=== PATIENT | male | born 1955 | race African-American/Black ===

== ENCOUNTER 2016-11-07 15:17 | Emergency (ER) | payer BC ==
[2016-11-07 15:36] VITALS: BMI 22.9
[2016-11-07 16:30] LABS: BASOPHIL 0.5 % (0-2.0); EOSINOPHIL 0.4 % (0-4.5); MCHC 32.7 g/dl (32.0-35.9); MEAN CELL VOLUME 79.5 fl (80-96); MEAN PLT VOLUME 8.2 fl (7.5-11.1); PLATELET COUNT 233 K/MM3 (134-434); RDW 13.7 % (11.9-15.9); URINE APPEARANCE CLEAR; URINE BILIRUBIN NEGATIVE (NEGATIVE); URINE COLOR LTYELLOW; URINE GLUCOSE (UA) NEGATIVE (NEGATIVE); URINE KETONE TRACE (NEGATIVE); URINE LEUK ESTERASE NEGATIVE (NEGATIVE); URINE NITRITE NEGATIVE (NEGATIVE); URINE PROTEIN NEGATIVE (NEGATIVE); URINE UROBILINOGEN NEGATIVE E.U./dl (0.2-1.0); WHITE BLOOD COUNT 3.8 K/mm3 (4.0-10.0)
[2016-11-07 16:32] LABS: URINE BLOOD 1+ (NEGATIVE)
[2016-11-07 16:34] LABS: URINE BACTERIA RARE /hpf (NONE SEEN); URINE HYALINE CAST 2 /lpf; URINE MUCUS RARE; URINE RBC 5 /hpf (0-3); URINE WBC 1 /hpf (3-5)
[2016-11-07 16:54] LABS: ALBUMIN 4.3 g/dl (3.4-5.0); ANION GAP 7 (8-16); CALCIUM 9.8 mg/dL (8.5-10.1); CO2 31 mmol/L (21-32); CREATININE 0.9 mg/dL (0.7-1.3); GLUCOSE,RANDOM 117 mg/dL (74-106); SGOT/AST 17 U/L (15-37); SGPT/ALT 23 U/L (12-78)
[2016-11-07 16:56] LABS: ALK PHOS 61 U/L (45-117); BILIRUBIN,TOTAL 0.7 mg/dL (0.2-1.0); TOT PROT 7.8 g/dl (6.4-8.2)
--- NOTE | 2016-11-07 16:56 | PDOC ---
History of Present Illness - General Chief Complaint: Urinary Problem Stated Complaint: UNABLE TO URINATE Time Seen by Provider: 11/07/16 15:40 History Source: Patient Exam Limitations: No Limitations - History of Present Illness Travel History: No Initial Comments: 11/07/16 16:56 61-year-old male with history of BPH and urinary retention presents to the ED with complaints of urinary retention for the past 5 hours since he was unable to void at a . Patient aggravated suprapubic pain without nausea, fever, chills, back pain, or abdominal distention. Timing/Duration: reports: constant, getting worse Quality: reports: moderate, fullness Abdominal Pain Onset Location: reports: suprapubic (mid) Pain Radiation: reports: no radiation Activities at Onset: reports: none Aggravating Factors: improves with: None Alleviating Factors: improves with: None Past History - Past Medical History Allergies/Adverse Reactions: Allergies Allergy/AdvReac Type Severity Reaction Status Date / Time No Known Allergies Allergy Verified 11/07/16 15:36 Home Medications: Ambulatory Orders Loratadine [Claritin -] 10 mg PO PRN 01/05/13 Montelukast Na [Singulair -] 1 tab PO PRN PRN 01/05/13 Tamsulosin HCl [Flomax] 0.4 mg PO DAILY #15 capsule 06/22/15 Anemia: No Asthma: No Cancer: No Cardiac Disorders: No CVA: No COPD: No CHF: No Dementia: No Diabetes: No GI Disorders: No Disorders: No HTN: (BORDERLINE HTN) Hypercholesterolemia: No Liver Disease: No Seizures: No Thyroid Disease: No - Psycho/Social/Smoking Cessation Hx Anxiety: No Suicidal Ideation: No Smoking History: Never smoked Have you smoked in the past 12 months: No Information on smoking cessation initiated: No Hx Alcohol Use: No Drug/Substance Use Hx: No Substance Use Type: None Hx Substance Use Treatment: No Patient Lives Alone: No Lives with/in: spouse/SO Review of Systems - Review of Systems Able to Perform ROS?: Yes Constitutional: No: Symptoms Reported Cardiac (ROS): No: Symptoms Reported ABD/GI: Yes: Abdominal cramping : Yes: Other Integumentary: No: Symptoms Reported Neurological: No: Symptoms reported *Physical Exam - Vital Signs Last Vital Signs Temp Pulse Resp BP Pulse Ox 98.2 F 122 H 20 121/83 100 11/07/16 15:33 11/07/16 15:33 11/07/16 15:33 11/07/16 15:33 11/07/16 15:33 - Physical Exam General Appearance: Yes: Nourished, Appropriately Dressed. No: Apparent Distress Gastrointestinal/Abdominal: positive: Normal Bowel Sounds, Soft, Tenderness ( midsuprapubic) Musculoskeletal: negative: CVA Tenderness Extremity: positive: Normal Capillary Refill. negative: Pedal Edema Integumentary: positive: Normal Color, Warm, Moist Neurologic: positive: Motor Strength 01/01 ED Treatment Course - LABORATORY CBC & Chemistry Diagram: 11/07/16 16:15 11/07/16 16:15 - ADDITIONAL ORDERS Additional order review: Laboratory Results 11/07/16 16:15 Urine Color Ltyellow Urine Appearance Clear Urine pH 5.0 Ur Specific [place] 1.011 Urine Protein Negative Urine Glucose (UA) Negative Urine Ketones Trace H Urine Blood 1+ H Urine Nitrite Negative Urine Bilirubin Negative Urine Urobilinogen Negative Ur Leukocyte Esterase Negative Urine RBC 5 Urine WBC 1 Urine Bacteria Rare Hyaline Casts 2 Urine Mucus Rare 11/07/16 16:15 RBC 5.33 MCV 79.5 L MCHC 32.7 RDW 13.7 MPV 8.2 Neutrophils % 69.0 Lymphocytes % 22.2 D Monocytes % 7.9 D Eosinophils % 0.4 D Basophils % 0.5 Medical Decision Making - Medical Decision Making 11/07/16 16:51 Pt with c/o urinary retention x 5 hours. Patient states history of urinary retention secondary to BPH and is followed by Dr. rowley and was told never told this year but patient states was at a few and all was unable to use the bathroom so when he did try to void after the he couldn't and so decided come to the ER when the suprapubic pain increased. patient ordered for UA, urine culture, CBC, and comp. 11/07/16 17:05 Laboratory Tests 11/07/16 11/07/16 11/07/16 16:15 16:15 16:15 WBC 3.8 L Hgb 13.9 Hct 42.4 Neutrophils % 69.0 Sodium 143 Potassium 4.0 Chloride 105 Carbon Dioxide 31 Anion Gap 7 L BUN 15 Creatinine 0.9 Creat Clearance w eGFR > 60 Random Glucose 117 H Calcium 9.8 Total Bilirubin 0.7 AST 17 ALT 23 Alkaline Phosphatase 61 Total Protein 7.8 Albumin 4.3 Urine Ketones Trace H Urine Blood 1+ H Urine Nitrite Negative Ur Leukocyte Esterase Negative Urine RBC 5 Urine WBC 1 Patient drained 400 mL of clear yellow urine. Patient be placed in a leg bag and told to follow-up with Dr. Hall on Wednesday *DC/Admit/Observation/Transfer Diagnosis at time of Disposition: Urinary retention due to benign prostatic hyperplasia - Discharge Dispostion Disposition: HOME Condition at time of disposition: Improved - Patient Instructions Printed Discharge Instructions: DI for Benign Prostatic Hyperplasia, DI for Urinary Retention in Men Additional Instructions: Please keep bag attached to a leg an empty as needed. Please follow-up with your urologist on Wednesday and return to ED if symptoms worsen
[2016-11-07 17:38] VITALS: BP 116/79; PULSE 89; TEMP 98.6
== END 2016-11-07 17:38 | disposition home or self-care (01) ==
LOC: JER 15:17
PROC: 0T9B70Z Drainage of Bladder with Drainage Device, Via Natural or Artificial Opening (ICD-10-PCS; principal; 2016-11-07)
DX: N40.1 Benign prostatic hyperplasia with lower urinary tract symptoms (principal); R33.8 Other retention of urine
CPT/HCPCS: 36415; 80053; 81003; 81015; 85025; 87086; 99282-25

== ENCOUNTER 2018-03-13 01:20 | Emergency (ER) | payer BC ==
[2018-03-13 01:49] VITALS: PULSE 91; TEMP 98.6; BMI 27.4
[2018-03-13 02:03] LABS: URINE APPEARANCE CLEAR; URINE BILIRUBIN NEGATIVE (<2.0 mg/dL); URINE COLOR STRAW; URINE GLUCOSE (UA) NEGATIVE (NEGATIVE); URINE KETONE NEGATIVE (NEGATIVE); URINE LEUK ESTERASE NEGATIVE (NEGATIVE); URINE NITRITE NEGATIVE (NEGATIVE); URINE PROTEIN NEGATIVE (NEGATIVE); URINE UROBILINOGEN NEGATIVE mg/dL (0.2-1.0)
[2018-03-13 02:06] LABS: URINE MUCUS RARE
[2018-03-13 02:11] VITALS: BP 130/81
--- NOTE | 2018-03-13 02:33 | PDOC ---
History of Present Illness - General Chief Complaint: Urinary Problem Stated Complaint: URINARY PROBLEM Time Seen by Provider: 03/13/18 02:15 History Source: Patient Exam Limitations: No Limitations - History of Present Illness Travel History: No Initial Comments: 03/13/18 02:26 This 63-year-old male with past medical history of BPH presents emergency Department with urinary retention for 6 hours. Patient states his last void was at 8:00 this evening prior to going to a libertarian. Of the libertarian had 2 drinks and felt the urge to void. He went to the bathroom and was only able to initiate a weak stream of urine which stopped after the first couple of drops. Patient began to experience suprapubic pain and distention. Patient left the libertarian and came to the emergency department for urgent evaluation and fully catheter placement. Patient denies any fevers, chills, flank pain. Past History - Past Medical History Allergies/Adverse Reactions: Allergies Allergy/AdvReac Type Severity Reaction Status Date / Time No Known Allergies Allergy Verified 03/13/18 01:48 Home Medications: Ambulatory Orders Loratadine [Claritin -] 10 mg PO PRN 01/05/13 Montelukast Na [Singulair -] 1 tab PO PRN PRN 01/05/13 Tamsulosin HCl [Flomax] 0.4 mg PO DAILY #15 capsule 06/22/15 Anemia: No Asthma: No Cancer: No Cardiac Disorders: No CVA: No COPD: No CHF: No Dementia: No Diabetes: No GI Disorders: No Disorders: No HTN: (BORDERLINE HTN) Hypercholesterolemia: No Liver Disease: No Seizures: No Thyroid Disease: No - Immunization History Immunization Up to Date: Yes - Suicide/Smoking/Psychosocial Hx Smoking History: Never smoked Have you smoked in the past 12 months: No Information on smoking cessation initiated: No Hx Alcohol Use: No Drug/Substance Use Hx: No Substance Use Type: None Hx Substance Use Treatment: No Review of Systems - Review of Systems Able to Perform ROS?: Yes Is the patient limited Croatian proficient: No Constitutional: No: Symptoms Reported HEENTM: No: Symptoms Reported Respiratory: No: Symptoms reported Cardiac (ROS): No: Symptoms Reported ABD/GI: No: Symptoms Reported : Yes: See HPI Musculoskeletal: No: Symptoms Reported Integumentary: No: Symptoms Reported Neurological: No: Symptoms reported Endocrine: No: Symptoms Reported Hematologic/Lymphatic: No: Symptoms Reported *Physical Exam - Vital Signs Last Vital Signs Temp Pulse Resp BP Pulse Ox 98.6 F 91 H 20 130/81 99 03/13/18 01:48 03/13/18 01:48 03/13/18 01:48 03/13/18 02:10 03/13/18 01:48 - Physical Exam General Appearance: Yes: Appropriately Dressed. No: Apparent Distress Gastrointestinal/Abdominal: positive: Normal Bowel Sounds, Tender (suprapubic) Musculoskeletal: positive: Normal Inspection. negative: CVA Tenderness Extremity: positive: Normal Inspection Integumentary: positive: Normal Color, Dry, Warm ED Treatment Course - ADDITIONAL ORDERS Additional order review: Laboratory Results 03/13/18 01:52 Urine Color Straw Urine Appearance Clear Urine pH 5.0 Ur Specific [place] 1.010 Urine Protein Negative Urine Glucose (UA) Negative Urine Ketones Negative Urine Blood 3+ H Urine Nitrite Negative Urine Bilirubin Negative Urine Urobilinogen Negative Ur Leukocyte Esterase Negative Urine WBC (Auto) 16 Urine RBC (Auto) 89 Urine Mucus Rare Medical Decision Making - Medical Decision Making 03/13/18 02:34 A/P: 63-year-old male with acute urinary retention Suprapubic distention Unable to successfully pass traditional Thayer catheter Coude catheter placed with 800 mL of clear yellow urine drained from fully. Acute urinary retention most likely from BPH but will send urine for infectious etiology UA with 3+ blood and negative leuk esterase. Given these findings is most likely BPH with atraumatic catheter placement. I will discharge patient home to follow-up with his primary urologist Dr. Sanchez. Patient patient previously prescribed Flomax. He just filled this prescription and does not need any refills. *DC/Admit/Observation/Transfer Diagnosis at time of Disposition: Urinary retention due to benign prostatic hyperplasia - Discharge Dispostion Disposition: HOME Condition at time of disposition: Stable Decision to Admit order: No - Referrals Referrals: Narayan Sanchez MD [Staff Physician] - Daniel Perales MD [Primary Care Provider] - - Patient Instructions Additional Instructions: Keep Thayer catheter in place until he follow-up with your urologist. Return to emergency department for any concerns. Thank you very much for choosing us to provide your emergent health care needs. - Post Discharge Activity
== END 2018-03-13 02:45 | disposition home or self-care (01) ==
LOC: JER 01:20
PROC: 0T9B70Z Drainage of Bladder with Drainage Device, Via Natural or Artificial Opening (ICD-10-PCS; principal; 2018-03-13)
DX: N40.1 Benign prostatic hyperplasia with lower urinary tract symptoms (principal); R33.8 Other retention of urine; I10 Essential (primary) hypertension
CPT/HCPCS: 81003; 81015; 87086; 99283-25

== ENCOUNTER 2019-03-15 09:36 | Emergency (ER) | payer BC, OTHER ==
[2019-03-15 09:45] VITALS: BP 156/107; PULSE 64; TEMP 98.9; BMI 22.8
[2019-03-15] MEDS ORDERED: DIPHTH,PERTUSS(ACELL),TET 0.5 ML DISP.SYRIN IM ONE ×2 (10:02→10:38)
[2019-03-15] MEDS ORDERED: IBUPROFEN 400 MG TABLET (FP) PO ONE ×2 (10:02→10:38)
--- NOTE | 2019-03-15 10:05 | PDOC ---
History of Present Illness - General Chief Complaint: Injury Stated Complaint: LEFT 3 AND 4TH FINGER CRUSH Time Seen by Provider: 03/15/19 09:44 History Source: Patient (Patient walked in complaining of accidental injury to left hand when a metal door was slamed on his hand) - History of Present Illness Timing/Duration: 1/2 hour Severity: mild, moderate Associated Symptoms: reports: denies symptoms Past History - Travel Traveled outside of the country in the last 30 days: No Close contact w/someone who was outside of country & ill: No - Past Medical History Allergies/Adverse Reactions: Allergies Allergy/AdvReac Type Severity Reaction Status Date / Time No Known Allergies Allergy Verified 03/15/19 09:38 Home Medications: Ambulatory Orders Sulfamethoxazole/Trimethoprim [Bactrim Ds Tablet] 1 each PO BID #14 tablet 03/15 Anemia: No Asthma: No Cancer: No Cardiac Disorders: No CVA: No COPD: No CHF: No Dementia: No Diabetes: No GI Disorders: No Disorders: No HTN: (BORDERLINE HTN) Hypercholesterolemia: No Liver Disease: No Seizures: No Thyroid Disease: No - Immunization History Td Vaccination: No Immunization Up to Date: No - Suicide/Smoking/Psychosocial Hx Smoking History: Never smoked Have you smoked in the past 12 months: No Information on smoking cessation initiated: No Hx Alcohol Use: No Drug/Substance Use Hx: No Substance Use Type: None Hx Substance Use Treatment: No Review of Systems - Review of Systems Able to Perform ROS?: Yes Is the patient limited Kyrgyz proficient: Yes Constitutional: No: Symptoms Reported, See HPI, Chills, Diaphoresis, Fever, Loss of Appetite, Malaise, Night Sweats, Weakness, Weight Stable, Unintentional Wgt. Loss, Unexplained wgt Loss, Other HEENTM: No: Symptoms Reported, See HPI, Eye Pain, Blurred Vision, Tearing, Recent change in vision, Double Vision, Cataracts, Ear Pain, Ocular Prothesis, Ear Discharge, Nose Pain, Nose Congestion, Tinnitus, Nose Bleeding, Hearing Loss , Throat Pain, Throat Swelling, Mouth Pain, Dental Problems, Difficulty Swallowing, Mouth Swelling, Other Respiratory: No: Symptoms reported, See HPI, Cough, Orthopnea, Shortness of Breath, SOB with Exertion, SOB at Rest, Stridor, Wheezing, Productive cough, Hemoptysis, Other Musculoskeletal: Yes: Symptoms Reported, See HPI, Other (injury to left hand by crushing by a metal door) Integumentary: Yes: Symptoms Reported, Other (cuts on [id number] & 4th fingers) All Other Systems: Reviewed and Negative *Physical Exam - Vital Signs Last Vital Signs Temp Pulse Resp BP Pulse Ox 98.9 F 64 20 156/107 H 99 03/15/19 09:38 03/15/19 09:38 03/15/19 09:38 03/15/19 09:38 03/15/19 09:38 - Physical Exam General Appearance: Yes: Nourished, Appropriately Dressed, Moderate Distress HEENT: positive: ROBERTO CARLOS Neck: positive: Supple Extremity: positive: Normal Capillary Refill Integumentary: positive: Other (lacerations on the palmar aspect of 3rd &4 digits, full range of motion, good strength) Neurologic: positive: water use inspector II-XII NML intact, Fully Oriented, Alert, Normal Mood/ Affect, Other (Normal neuro vascular of the affected extremity) Procedures - Laceration/Wound Repair Left Volar Finger 3rd digit Wound Length: 2.6 to 5.0 cm Wound Explored: no foreign body present Wound's Depth, Shape: superficial, irregular Irrigated w/ Saline: Yes Betadine Prep: Yes Anesthesia: 2% Lidocaine Amount of Anesthetic (ccs): 10 (digital blocks 3 & 4 fingers) Wound Debrided: minimal Wound Repaired With: Sutures Suture Size/Type: 5:0 Number of Sutures: 8 (5 + 3 sutures) Deep Layer Suture Size/Type: 5:0 Sterile Dressing Applied: Yes Splint Applied: Yes *DC/Admit/Observation/Transfer Diagnosis at time of Disposition: Laceration of multiple sites of hand and fingers Qualifiers: Encounter type: initial encounter Laterality: right Qualified Code(s): S61.411A - Laceration without foreign body of right hand, initial encounter - Discharge Dispostion Disposition: HOME Condition at time of disposition: Improved Decision to Admit order: No - Prescriptions Prescriptions: Sulfamethoxazole/Trimethoprim [Bactrim Ds Tablet] 1 each PO BID #14 tablet - Referrals Referrals: Waldemar Yee MD [Staff Physician] - - Patient Instructions Printed Discharge Instructions: DI for Laceration Repair Additional Instructions: clean and dry, if getting dirty or wet change dressing Follow up with hand / plastic specialist in 3-5 days Sutures out in 12-14 days - Post Discharge Activity Forms/Work/School Notes: Back to Work
[2019-03-15] MEDS ORDERED: LIDOCAINE HCL 2% (20ML MULTI-DOSE VIAL) NR ONE (10:53)
[2019-03-15] MEDS ORDERED: SULFAMETHOXAZOLE/TRIMETHOPRIM 800MG/160MG D.S. TABLET PO ONE (12:16)
[2019-03-15] MEDS ORDERED: SULFAMETHOXAZOLE/TRIMETHOPRIM 800MG/160MG D.S. TABLET ONE (12:18)
== END 2019-03-15 12:44 | disposition home or self-care (01) ==
LOC: FER 09:36
PROC: 0HQGXZZ Repair Left Hand Skin, External Approach (ICD-10-PCS; principal; 2019-03-15)
PROC: 3E0234Z Introduction of Serum, Toxoid and Vaccine into Muscle, Percutaneous Approach (ICD-10-PCS; 2019-03-15)
DX: S61.213A Laceration without foreign body of left middle finger without damage to nail, initial encounter (principal); W23.0XXA Caught, crushed, jammed, or pinched between moving objects, initial encounter; Y93.9 Activity, unspecified; Y92.9 Unspecified place or not applicable
CPT/HCPCS: 73140-TC-LT-FY; 90715; 99282-25

== ENCOUNTER 2019-07-19 21:22 | Emergency (ER) | payer BC, OTHER ==
[2019-07-19 21:25] VITALS: BP 144/97; PULSE 102; TEMP 98.7; BMI 22.8
[2019-07-19 21:52] LABS: EPI CELLS 1.5 /HPF (0-5/HPF); HYALINE CASTS 5 /lpf (0-8); URINE APPEARANCE CLOUDY; URINE BACTERIA 0.2 /hpf (NEGATIVE); URINE BILIRUBIN NEGATIVE (NEGATIVE); URINE COLOR RED; URINE GLUCOSE (UA) NEGATIVE (NEGATIVE); URINE KETONE NEGATIVE (NEGATIVE); URINE LEUK ESTERASE 1+ (NEGATIVE); URINE NITRITE NEGATIVE (NEGATIVE); URINE PROTEIN 2+ (NEGATIVE); URINE RBC 237 /hpf (0-4); URINE UROBILINOGEN 0.2 mg/dL (0.2-1.0); URINE WBC 7 /hpf (0-5)
[2019-07-19 22:01] LABS: BASO % 0.7 % (0-2.0); EOS % 0.9 % (0-4.5); HEMOGLOBIN 12.5 GM/dL (11.7-16.9); LYMPH % 24.5 % (8-40); MCH 26.3 pg (25.7-33.7); MEAN CELL VOLUME 79.7 fl (80-96); MEAN PLT VOLUME 8.2 fl (7.5-11.1); MONO % 10.4 % (3.8-10.2); NEUT % 63.5 % (42.8-82.8); PLATELET COUNT 195 K/MM3 (134-434); RBC 4.77 M/mm3 (4.00-5.60); RDW 13.2 % (11.9-15.9); WHITE BLOOD COUNT 5.6 K/mm3 (4.0-10.0)
--- NOTE | 2019-07-19 22:23 | PDOC ---
Documentation entered by Leah Lam SCRIBE, acting as scribe for Caitie Raines DO. Caitie Raines DO: This documentation has been prepared by the Carole anderson Xhesika, SCRIBE, under my direction and personally reviewed by me in its entirety. I confirm that the documentation accurately reflects all work, treatment, procedures, and medical decision making performed by me. History of Present Illness - General Chief Complaint: Urinary Problem Stated Complaint: UTI Time Seen by Provider: 07/19/19 21:38 History Source: Patient Exam Limitations: No Limitations - History of Present Illness Initial Comments: 07/19/19 22:13 The patient is a 64 year old male with a significant PMH of green light procedure done (07/17/19) who presents to the emergency department for urinary retention x 6hrs. Patient notes he had a green light procedure done 07/17/[address] Sanchez and had his cath removed today at 11am. Patient notes he has been able to void once or twice between 11am-4pm, however, has not been able to void after 4pm. Pt notes he has been drinking liquids. The patient denies chest pain, shortness of breath, headache. Denies fever, chills, cough, nausea, vomiting, diarrhea and constipation. Denies dysuria, frequency, urgency. Allergies: STEPHANYDA Urologist: Dr. Sanchez Past History - Past Medical History Allergies/Adverse Reactions: Allergies Allergy/AdvReac Type Severity Reaction Status Date / Time No Known Allergies Allergy Verified 07/19/19 21:25 Home Medications: Ambulatory Orders Amlodipine Besylate 5 mg PO DAILY 07/19/19 Anemia: No Asthma: No Cancer: No Cardiac Disorders: No CVA: No COPD: No CHF: No Dementia: No Diabetes: No GI Disorders: No Disorders: No HTN: (BORDERLINE HTN) Hypercholesterolemia: No Liver Disease: No Seizures: No Thyroid Disease: No - Immunization History Td Vaccination: No Immunization Up to Date: No - Psycho Social/Smoking Cessation Hx Smoking History: Never smoked Have you smoked in the past 12 months: No Hx Alcohol Use: No Drug/Substance Use Hx: No Substance Use Type: None Hx Substance Use Treatment: No Review of Systems - Review of Systems Able to Perform ROS?: Yes Comments:: 07/19/19 22:14 GENERAL/CONSTITUTIONAL: No fever or chills. No weakness. HEAD, EYES, EARS, NOSE AND THROAT: No change in vision. No ear pain or discharge. No sore throat. CARDIOVASCULAR: No chest pain or shortness of breath. RESPIRATORY: No cough, wheezing, or hemoptysis. GASTROINTESTINAL: No nausea, vomiting, diarrhea or constipation. GENITOURINARY: No dysuria, frequency.+urinary retention. MUSCULOSKELETAL: No joint or muscle swelling or pain. No neck or back pain. SKIN: No rash NEUROLOGIC: No headache, vertigo, loss of consciousness, or change in strength/ sensation. ENDOCRINE: No increased thirst. No abnormal weight change. HEMATOLOGIC/LYMPHATIC: No anemia, easy bleeding, or history of blood clots. ALLERGIC/IMMUNOLOGIC: No hives or skin allergy. *Physical Exam - Vital Signs Last Vital Signs Temp Pulse Resp BP Pulse Ox 98.7 F 102 H 18 144/97 99 07/19/19 21:23 07/19/19 21:23 07/19/19 21:23 07/19/19 21:23 07/19/19 21:23 - Physical Exam Comments: 07/19/19 23:00 GENERAL: Awake, alert, and fully oriented, in no acute distress HEAD: No signs of trauma EYES: PERRLA, EOMI, sclera anicteric, conjunctiva clear LUNGS: Breath sounds equal, clear to auscultation bilaterally. No wheezes, and no crackles HEART: Regular rate and rhythm, normal S1 and S2, no murmurs, rubs or gallops ABDOMEN: Soft, nontender, normoactive bowel sounds. No guarding, no rebound. No masses GI/: + catheter in place. + no bleeding at the meatus. +pink tinted urine coming out. Uncircumcised. EXTREMITIES: Normal range of motion, no edema. No clubbing or cyanosis. No cords, erythema, or tenderness NEUROLOGICAL: Cranial nerves II through XII grossly intact. Normal speech, normal gait SKIN: Warm, Dry, normal turgor, no rashes or lesions noted. ED Treatment Course - LABORATORY CBC & Chemistry Diagram: 07/19/19 21:50 07/19/19 21:50 - ADDITIONAL ORDERS Additional order review: Laboratory Results 07/19/19 21:40 Urine Color Red Urine Appearance Cloudy Urine pH 6.0 Ur Specific [place] 1.009 L Urine Protein 2+ H Urine Glucose (UA) Negative Urine Ketones Negative Urine Blood 3+ H Urine Nitrite Negative Urine Bilirubin Negative Urine Urobilinogen 0.2 Ur Leukocyte Esterase 1+ H Urine WBC (Auto) 7 Urine RBC (Auto) 237 Urine Casts (Auto) 5 U Epithel Cells (Auto) 1.5 Urine Bacteria (Auto) 0.2 Medical Decision Making - Medical Decision Making 07/19/19 22:20 a/p: 64yo male with recent prostate sx with dr. De Los Santos presents for eval of urinary retention -last time he was able to pass urine was 4p -states his post op catheter was removed by the urologist at 11am - he was able to urinate twice prior to going into retention -catheter placed by the nurse upon arrival shows 650cc of blood tinged urine - had hematuria yesterday - no clots -no pain after placement of the catheter -will send cbc, chem, ua, ucx -will need a leg bag to go home with -will discuss with Dr. De Los Santos 07/19/19 22:47 labs reviewed no elevated wbc or cr 07/19/19 23:26 pt ambulatory in the ER with a steady gait pending call back from Dr. Sanchez stable for dc to home 07/19/19 23:28 discussed labs with the patient states he will call Dr. aSnchez in the AM pt requesting to go home Discharge - Discharge Information Problems reviewed: Yes Clinical Impression/Diagnosis: Postoperative urinary retention Condition: Stable Disposition: HOME - Admission No - Follow up/Referral Referrals: Narayan Sanchez MD [Staff Physician] - - Patient Discharge Instructions Patient Printed Discharge Instructions: How to Care for Your Qureshi Catheter -- Male, DI for Urinary Retention in Men Additional Instructions: Please follow up with Dr. Sanchez. Please keep the qureshi catheter in until seen by your urologist. - Post Discharge Activity
[2019-07-19 22:29] LABS: ALBUMIN 3.7 g/dl (3.4-5.0); BILIRUBIN,TOTAL 0.4 mg/dL (0.2-1); BLOOD UREA NITROGEN 11.8 mg/dL (7-18); CALCIUM 8.4 mg/dL (8.5-10.1); CREATININE 0.8 mg/dL (0.55-1.3); POTASSIUM 3.8 mmol/L (3.5-5.1)
== END 2019-07-19 23:32 | disposition home or self-care (01) ==
LOC: JER 21:22
PROC: 0T9B70Z Drainage of Bladder with Drainage Device, Via Natural or Artificial Opening (ICD-10-PCS; principal; 2019-07-19)
DX: R33.9 Retention of urine, unspecified (principal); R33.8 Other retention of urine; I10 Essential (primary) hypertension
CPT/HCPCS: 36415; 80053; 81003; 85025; 87086; 99283-25

== ENCOUNTER 2023-09-30 04:30 | Day surgery (SDC) | payer BC ==
[2023-09-23 14:45] VITALS: BMI 22.7
[2023-09-30 09:57] VITALS: RESP 18
[2023-09-30 10:43] VITALS: TEMP 97.8
[2023-09-30 11:55] VITALS: BP 139/83; PULSE 55
== END 2023-09-30 11:45 | disposition home or self-care (01) ==
LOC: JASU-ENDO 04:30
PROVIDERS: ATTEND Internal Medicine Gastroenterology
PROC: 0DB68ZX Excision of Stomach, Via Natural or Artificial Opening Endoscopic, Diagnostic (ICD-10-PCS; 2023-09-30)
PROC: 0DB78ZX Excision of Stomach, Pylorus, Via Natural or Artificial Opening Endoscopic, Diagnostic (ICD-10-PCS; 2023-09-30)
PROC: 0DBM8ZX Excision of Descending Colon, Via Natural or Artificial Opening Endoscopic, Diagnostic (ICD-10-PCS; principal; 2023-09-30 10:30)
DX: Z12.11 Encounter for screening for malignant neoplasm of colon (principal); K63.5 Polyp of colon; K29.50 Unspecified chronic gastritis without bleeding
CPT/HCPCS: 88305-TC; 88342-TC